=== PATIENT | female | born 1975 | race Caucasian/White ===

== ENCOUNTER 2017-10-06 11:05 | Emergency (ER) | payer OTHER ==
[2017-10-06] MEDS ORDERED: Ketorolac 60 MG/2 ML SDV IM ONE (11:19)
--- NOTE | 2017-10-06 11:24 | EDM.PDOC ---
ED HPI GENERAL MEDICAL PROBLEM - General Chief Complaint: Lower Extremity Injury/Pain Stated Complaint: INJURY LETF KNEE Time Seen by Provider: 10/06/17 11:16 Source of Information: Reports: Patient History Limitations: Reports: No Limitations - History of Present Illness INITIAL COMMENTS - FREE TEXT/NARRATIVE: HISTORY AND PHYSICAL: History of present illness: Patient is a 41-year-old female who presents to the emergency room with complaints of left lateral knee pain. She states she was in [place] picking up her grandson when she was leaning over the console to adjust a seatbelt, was resting on her knee when she felt her leg twist wrong and heard a "pop" to the left knee. She got out of the vehicle to stand up and felt like her leg was going to "give out" and had pain with weight bearing. Currently states it feels "sore" and still has the discomfort when bearing weight on that leg. Denies any numbness or tingling to the lower extremity. Denies any previous injury or surgery to the affected extremity. Review of systems: As per history of present illness and below otherwise all systems reviewed and negative. Past medical history: As per history of present illness and as reviewed below otherwise noncontributory. Surgical history: As per history of present illness and as reviewed below otherwise noncontributory. Social history: No reported history of drug or alcohol abuse. Family history: As per history of present illness and as reviewed below otherwise noncontributory. Physical exam: Gen.: Nontoxic appearing 41-year-old female. Alert and oriented. HEENT: Atraumatic, normocephalic, pupils reactive, negative for conjunctival pallor or scleral icterus, mucous membranes moist, throat clear, neck supple, nontender, trachea midline. Lungs: Clear to auscultation, breath sounds equal bilaterally, chest nontender. Heart: S1S2, regular, negative for clicks, rubs, or JVD. Abdomen: Soft, nondistended, nontender. Negative for masses or hepatosplenomegaly. Negative for costovertebral tenderness. Pelvis: Stable nontender. Genitourinary: Deferred. Rectal: Deferred. Extremities: Atraumatic, moves all extremities per self, negative drawer test, no knee instability noted, negative for cords or calf pain. Neurovascular unremarkable. Strong pedal pulses bilaterally. Skin: No localized areas of redness, warmth, or swelling noted. Intact, warm, dry. No overt lesions or masses. Neuro: Awake, alert, oriented. Cranial nerves II through XII unremarkable. Cerebellum unremarkable. Motor and sensory unremarkable throughout. Exam nonfocal. Patient's blood pressure has not decreased from her initial assessment. Current BP is 232/119 she states she has not had any primary care in "several years". I did suggest that we give her some medication and perform some routine lab work. She declines at this time. She states "I'm only here from a knee". She states she will follow-up with the primary caregiver in the next couple days for evaluation and treatment of her untreated hypertension. There are no acute fractures on the x-ray reading. I informed the patient that I would like her to stay off of her leg over the next 2-3 days. Due to her size a knee immobilizer will not work, we will use an Rodrigue wrap. Crutches will be provided for her with education. If she continues to have pain I instructed her I would like her to follow-up with the orthopedic provider as an MRI may need to be done for inspection of ligamental injury/tear. Prescription for Cataflam will be given for daytime use. A limited amount of tramadol (#10) will be given for nighttime use. Education on both these medications were reviewed with the patient. Patient is agreeable to plan of care. She denies any further questions at this time. Diagnostics: Knee x-ray Therapeutics: Toradol Impression: Knee injury Plan: 1. Use the Cataflam during the day for pain management. Do not take any additional NSAIDs such as Aleve or ibuprofen while taking this medication. Tylenol is safe to take with or alternating with this medication. Tramadol has been prescribed for nighttime use. Do not take this medication while driving or needing to be functioning at work as it may cause drowsiness. 2. Use the Rodrigue wrap to help keep the knee immobilized. Crutches have been provided for you. I would like you to be nonweightbearing for the next 2-3 days. , Ice, elevate the extremity throughout the day as feasible. If you continue to have discomfort please follow-up with orthopedics as we discussed. 3. Please follow-up with your primary care provider to discuss your high blood pressure readings. Today they were 200s over 120s, normal is 120/80. He will likely need medication to control your blood pressure in the future. We discussed risks of continuing to have elevated blood pressure. 4. Return to the ED as needed and as discussed. Definitive disposition and diagnosis as appropriate pending reevaluation and review of above. Onset: Today Duration: Hour(s): Location: Reports: Lower Extremity, Left Improves with: Reports: Rest Worsens with: Reports: Other (Weight bearing) Associated Symptoms: Reports: No Other Symptoms Left Knee Pain Score (Numeric/FACES): 9 - Related Data Allergies Allergy/AdvReac Type Severity Reaction Status Date / Time sulfamethoxazole Allergy Rash Verified 10/09/16 10:44 [From Bactrim] trimethoprim [From Bactrim] Allergy Rash Verified 10/09/16 10:44 Home Meds: Home Meds . [No Known Home Meds] 10/06/17 [History] Past Medical History - Past Health History Medical/Surgical History: Denies Medical/Surgical History HEENT History: Reports: None Cardiovascular History: Reports: Hypertension Respiratory History: Reports: None Gastrointestinal History: Reports: None Genitourinary History: Reports: None [employer] P[employer]ER History: Reports: None Neurological History: Reports: None Psychiatric History: Reports: None Endocrine/Metabolic History: Reports: None Hematologic History: Reports: None Immunologic History: Reports: None Oncologic (Cancer) History: Reports: None Dermatologic History: Reports: None - Infectious Disease History Infectious Disease History: Reports: Chicken Pox - Past Surgical History Female Surgical History: Reports: Tubal Ligation Musculoskeletal Surgical History: Reports: ORIF, Other (See Below) Social & Family History - Family History Family Medical History: Noncontributory - Tobacco Use Smoking Status *Q: Never Smoker Second Hand Smoke Exposure: No - Caffeine Use Caffeine Use: Reports: Coffee, Soda - Alcohol Use Days Per Week of Alcohol Use: 0 - Recreational Drug Use Recreational Drug Use: Yes Drug Use in Last 12 Months: Yes Recreational Drug Type: Reports: Cocaine Recreational Drug Use Frequency: Not Used In Over 6 Months Review of Systems - Review of Systems Review Of Systems: ROS reveals no pertinent complaints other than HPI. Constitutional: Reports: No Symptoms Eyes: Reports: No Symptoms Ears: Reports: No Symptoms Nose: Reports: No Symptoms Mouth/Throat: Reports: No Symptoms Respiratory: Reports: No Symptoms. Denies: Shortness of Breath Cardiovascular: Denies: Chest Pain GI/Abdominal: Denies: Abdominal Pain Skin: Reports: No Symptoms Neurological: Reports: No Symptoms. Denies: Numbness, Paresthesia Psychiatric: Reports: No Symptoms ED EXAM, GENERAL - Physical Exam Exam: See Below Course - Vital Signs Last Recorded V/S: Last Vital Signs Temp 36.3 C 10/06/17 13:52 Pulse 76 10/06/17 13:52 Resp 18 10/06/17 13:52 BP 211/132 H 10/06/17 13:54 Pulse Ox 98 10/06/17 13:52 - Orders/Labs/Meds Orders: Active Orders 24 hr Category Date Time Status DME for Discharge [COMM] Stat Oth 10/06/17 13:49 Ordered Meds: Medications Discontinued Medications Generic Name Dose Route Start Last Admin Trade Name Allyn PRN Reason Stop Dose Admin Ketorolac Tromethamine 60 mg 10/06/17 11:19 10/06/17 11:34 Toradol IM 10/06/17 11:20 60 mg ONETIME ONE Administration Departure - Departure Time of Disposition: 13:48 Disposition: Home, Self-Care 01 Clinical Impression: Elevated blood pressure reading Knee injury Qualifiers: Encounter type: initial encounter Laterality: left Qualified Code(s): S89.92XA - Unspecified injury of left lower leg, initial encounter - Discharge Information Instructions: Knee Pain Referrals: Davin Gurrola DO [Primary Care Provider] - Forms: ED Department Discharge Additional Instructions: My general discharge The following information is given to patients seen in the emergency department who are being discharged to home. This information is to outline your options for follow-up care. We provide all patients seen in our emergency department with a follow-up referral. The need for follow-up, as well as the timing and circumstances, are variable depending upon the specifics of your emergency department visit. If you don't have a primary care physician on staff, we will provide you with a referral. We always advise you to contact your personal physician following an emergency department visit to inform them of the circumstance of the visit and for follow-up with them and/or the need for any referrals to a consulting specialist. The emergency department will also refer you to a specialist when appropriate. This referral assures that you have the opportunity for follow-up care with a specialist. All of these measure are taken in an effort to provide you with optimal care, which includes your follow-up. Under all circumstances we always encourage you to contact your private physician who remains a resource for coordinating your care. When calling for follow-up care, please make the office aware that this follow-up is from your recent emergency room visit. If for any reason you are refused follow-up, please contact the [facility] Emergency Department at and asked to speak to the emergency department charge nurse [facility] [address], [address] [place] [address] 1. Use the Cataflam during the day for pain management. Do not take any additional NSAIDs such as Aleve or ibuprofen while taking this medication. Tylenol is safe to take with or alternating with this medication. Tramadol has been prescribed for nighttime use. Do not take this medication while driving or needing to be functioning at work as it may cause drowsiness. 2. Use the Rodrigue wrap to help keep the knee immobilized. Crutches have been provided for you. I would like you to be nonweightbearing for the next 2-3 days. , Ice, elevate the extremity throughout the day as feasible. If you continue to have discomfort please follow-up with orthopedics as we discussed. 3. Please follow-up with your primary care provider to discuss your high blood pressure readings. Today they were 200s over 120s, normal is 120/80. He will likely need medication to control your blood pressure in the future. We discussed risks of continuing to have elevated blood pressure. 4. Return to the ED as needed and as discussed. - My Orders Last 24 Hours: My Active Orders 10/06/17 13:49 DME for Discharge [COMM] Stat - Assessment/Plan Last 24 Hours: My Active Orders 10/06/17 13:49 DME for Discharge [COMM] Stat
--- NOTE | 2017-10-06 12:29 | CR ---
EXAMINATION: Left knee HISTORY: Pain COMPARISON: None TECHNIQUE: 3 views FINDINGS/IMPRESSION: There is no acute osseous abnormality, dislocation, or fracture. Joint spaces an d bone mineralization appears normal. No soft tissue swelling or joint effusion.
[2017-10-06 13:58] VITALS: BP 211/132
== END 2017-10-06 14:24 | disposition home or self-care (01) ==
LOC: MW.ED 11:05
DX: S89.92XA Unspecified injury of left lower leg, initial encounter (principal); I10 Essential (primary) hypertension; Z88.2 Allergy status to sulfonamides; Z88.1 Allergy status to other antibiotic agents; X50.1XXA Overexertion from prolonged static or awkward postures, initial encounter
CPT/HCPCS: 73562; 96372; 99283; J1885; 99284

== ENCOUNTER 2018-12-01 21:18 | Inpatient (IN) | payer OTHER ==
--- NOTE | 2018-12-01 22:25 | EDM.PDOC ---
ED HPI GENERAL MEDICAL PROBLEM - General Chief Complaint: General Stated Complaint: fever Time Seen by Provider: 12/01/18 22:25 Source of Information: Reports: Patient - History of Present Illness INITIAL COMMENTS - FREE TEXT/NARRATIVE: HISTORY AND PHYSICAL: History of present illness: [Patient presents with 1-2 weeks of cough fever and significant cough shortness breath over the last couple of days Eyes any chest pain headache dizziness palpitation no bowel or urine symptoms ] Review of systems: As per history of present illness and below otherwise all systems reviewed and negative. Past medical history: As per history of present illness and as reviewed below otherwise noncontributory. Surgical history: As per history of present illness and as reviewed below otherwise noncontributory. Social history: No reported history of drug or alcohol abuse. Family history: As per history of present illness and as reviewed below otherwise noncontributory. Physical exam: HEENT: Atraumatic, normocephalic, pupils reactive, negative for conjunctival pallor or scleral icterus, mucous membranes moist, throat clear, neck supple, nontender, trachea midline. Lungs: Clear to auscultation, breath sounds equal bilaterally, chest nontender. Post breathing treatment Heart: S1S2, regular, negative for clicks, rubs, or JVD. Abdomen: Soft, nondistended, nontender. Negative for masses or hepatosplenomegaly. Negative for costovertebral tenderness. Pelvis: Stable nontender. Genitourinary: Deferred. Rectal: Deferred. Extremities: Atraumatic, negative for cords or calf pain. Neurovascular unremarkable. Neuro: Awake, alert, oriented. Cranial nerves II through XII unremarkable. Cerebellum unremarkable. Motor and sensory unremarkable throughout. Exam nonfocal. Diagnostics: []Chest 1 view Influenza TBC CMP BN peptide lactate blood cultures 2 Chest 1 view Therapeutics: will saline Levaquin 7050 mg IV Impression: pneumonia deffinitive disposition and diagnosis as appropriate pending reevaluation and review of above. Generalized Pain Score (Numeric/FACES): 7 - Related Data Allergies Allergy/AdvReac Type Severity Reaction Status Date / Time sulfamethoxazole Allergy Rash Verified 12/01/18 22:10 [From Bactrim] trimethoprim [From Bactrim] Allergy Rash Verified 12/01/18 22:10 Home Meds: Home Meds Lisinopril 10 mg PO DAILY 12/01/18 [History] Past Medical History - Past Health History Medical/Surgical History: Denies Medical/Surgical History HEENT History: Reports: None Cardiovascular History: Reports: Hypertension Respiratory History: Reports: None Gastrointestinal History: Reports: None Genitourinary History: Reports: None [employer]NER History: Reports: Neurological History: Reports: None Psychiatric History: Reports: None Endocrine/Metabolic History: Reports: None Hematologic History: Reports: None Immunologic History: Reports: None Oncologic (Cancer) History: Reports: None Dermatologic History: Reports: None - Infectious Disease History Infectious Disease History: Reports: Chicken Pox - Past Surgical History Female Surgical History: Reports: Tubal Ligation Musculoskeletal Surgical History: Reports: ORIF, Other (See Below) Social & Family History - Family History Family Medical History: Noncontributory - Tobacco Use Smoking Status *Q: Former Smoker Used Tobacco, but Quit: Yes Month/Year Tobacco Last Used: 2012 - Caffeine Use Caffeine Use: Reports: Coffee, Soda - Recreational Drug Use Recreational Drug Use: No ED ROS GENERAL - Review of Systems Review Of Systems: See Below ED EXAM, GENERAL - Physical Exam Exam: See Below Course - Vital Signs Last Recorded V/S: Last Vital Signs Temp 98.9 F 12/01/18 22:06 Pulse 116 H 12/01/18 22:06 Resp 24 H 12/01/18 22:06 BP 193/120 H 12/01/18 22:06 Pulse Ox 94 L 12/01/18 22:06 - Orders/Labs/Meds Orders: Active Orders 24 hr Category Date Time Status RT Aerosol Therapy [RC] ASDIRECTED Care 12/01/18 23:16 Active Chest 1V Frontal [CR] Stat Exams 12/01/18 22:24 Taken CULTURE BLOOD [BC] Stat Lab 12/01/18 23:30 Received CULTURE BLOOD [BC] Stat Lab 12/01/18 23:40 Received UA RFX ERIKA AND CULT IF INDIC [URIN] Stat Lab 12/01/18 23:16 Ordered Levofloxacin/Dextrose 5%-Water [Levaquin in D5W 750 MG/ Med 12/02/18 00:13 Active 150 ML] 750 mg Premix Bag 1 bag IV ONETIME Sodium Chloride 0.9% [Normal Saline] 1,000 ml Med 12/01/18 23:30 Active IV STAT Sodium Chloride 0.9% [Normal Saline] 1,000 ml Med 12/02/18 00:15 Active IV STAT Blood Culture x2 Reflex Set [OM.PC] Stat Oth 12/01/18 23:16 Ordered Medication Orders Sodium Chloride (Normal Saline) 1,000 mls @ 125 mls/hr IV STAT JULIO Last Admin: 12/02/18 00:22 Dose: 125 mls/hr Levofloxacin/Dextrose 750 mg/ (Premix) 150 mls @ 100 mls/hr IV ONETIME ONE Stop: 12/02/18 01:42 Sodium Chloride (Normal Saline) 1,000 mls @ 125 mls/hr IV STAT JULIO Labs: Laboratory Tests 12/01/18 12/01/18 12/01/18 Range/Units 23:30 23:30 23:30 WBC 5.48 (4.0-11.0) K/uL RBC 5.79 (4.30-5.90) M/uL Hgb 14.8 (12.0-16.0) g/dL Hct 44.6 (36.0-46.0) % MCV 77.0 L (80.0-98.0) fL MCH 25.6 L (27.0-32.0) pg MCHC 33.2 (31.0-37.0) g/dL RDW Std Deviation 39.6 (28.0-62.0) fl RDW Coeff of Nidia 14 (11.0-15.0) % Plt Count 156 (150-400) K/uL MPV 10.50 (7.40-12.00) fL Add Manual Diff YES Neutrophils % (Manual) 40 L (48.0-80.0) % Band Neutrophils % 9 % Lymphocytes % (Manual) 40 (16.0-40.0) % Monocytes % (Manual) 11 (0.0-15.0) % Nucleated RBC % 0.0 /100WBC Absolute Seg Neuts 2.2 (1.4-5.7) Band Neutrophils # 0.5 Lymphocytes # (Manual) 2.2 (0.6-2.4) Monocytes # (Manual) 0.6 (0.0-0.8) Nucleated RBCs # 0 K/uL Lactate 1.0 (0.20-2.00) mmol/L Sodium 139 (136-145) mmol/L Potassium 3.6 (3.5-5.1) mmol/L Chloride 102 (98-107) mmol/L Carbon Dioxide 26.6 (21.0-32.0) mmol/L BUN 13 (7.0-18.0) mg/dL Creatinine 1.3 H (0.6-1.0) mg/dL Est Cr Clr Drug Dosing 50.21 mL/min Estimated GFR (MDRD) 44.7 ml/min Glucose 99 (74-106) mg/dL Calcium 8.9 (8.5-10.1) mg/dL Total Bilirubin 0.6 (0.2-1.0) mg/dL AST 45 H (15-37) IU/L ALT 80 H (14-63) IU/L Alkaline Phosphatase 66 (46-116) U/L Troponin I < 0.050 (0.000-0.056) ng/mL B-Natriuretic Peptide (<100) PG/ML Total Protein 7.6 (6.4-8.2) g/dL Albumin 3.3 L (3.4-5.0) g/dL Globulin 4.3 H (2.6-4.0) g/dL Albumin/Globulin Ratio 0.8 L (0.9-1.6) 12/01/18 Range/Units 23:30 WBC (4.0-11.0) K/uL RBC (4.30-5.90) M/uL Hgb (12.0-16.0) g/dL Hct (36.0-46.0) % MCV (80.0-98.0) fL MCH (27.0-32.0) pg MCHC (31.0-37.0) g/dL RDW Std Deviation (28.0-62.0) fl RDW Coeff of Nidia (11.0-15.0) % Plt Count (150-400) K/uL MPV (7.40-12.00) fL Add Manual Diff Neutrophils % (Manual) (48.0-80.0) % Band Neutrophils % % Lymphocytes % (Manual) (16.0-40.0) % Monocytes % (Manual) (0.0-15.0) % Nucleated RBC % /100WBC Absolute Seg Neuts (1.4-5.7) Band Neutrophils # Lymphocytes # (Manual) (0.6-2.4) Monocytes # (Manual) (0.0-0.8) Nucleated RBCs # K/uL Lactate (0.20-2.00) mmol/L Sodium (136-145) mmol/L Potassium (3.5-5.1) mmol/L Chloride (98-107) mmol/L Carbon Dioxide (21.0-32.0) mmol/L BUN (7.0-18.0) mg/dL Creatinine (0.6-1.0) mg/dL Est Cr Clr Drug Dosing mL/min Estimated GFR (MDRD) ml/min Glucose (74-106) mg/dL Calcium (8.5-10.1) mg/dL Total Bilirubin (0.2-1.0) mg/dL AST (15-37) IU/L ALT (14-63) IU/L Alkaline Phosphatase (46-116) U/L Troponin I (0.000-0.056) ng/mL B-Natriuretic Peptide 18 (<100) PG/ML Total Protein (6.4-8.2) g/dL Albumin (3.4-5.0) g/dL Globulin (2.6-4.0) g/dL Albumin/Globulin Ratio (0.9-1.6) Meds: Medications Generic Name Dose Route Start Last Admin Trade Name Freq PRN Reason Stop Dose Admin Sodium Chloride 1,000 mls @ 125 mls/hr 12/01/18 23:30 12/02/18 00:22 Normal Saline IV 125 mls/hr STAT JULIO Administration Levofloxacin/Dextrose 750 mg/ 150 mls @ 100 mls/hr 12/02/18 00:13 Premix IV 12/02/18 01:42 ONETIME ONE Sodium Chloride 1,000 mls @ 125 mls/hr 12/02/18 00:15 Normal Saline IV STAT JULIO Discontinued Medications Generic Name Dose Route Start Last Admin Trade Name Freq PRN Reason Stop Dose Admin Albuterol/Ipratropium 3 ml 12/01/18 23:16 12/02/18 00:22 Duoneb 3.0-0.5 Mg/3 Ml NEB 12/01/18 23:17 3 ml ONETIME ONE Administration Methylprednisolone Sodium Succinate 125 mg 12/01/18 23:16 12/02/18 00:22 Solu-Medrol IVPUSH 12/01/18 23:17 125 mg ONETIME ONE Administration Departure - Departure Time of Disposition: 00:45 Disposition: Admitted As Inpatient 65 Condition: Fair Clinical Impression: Pneumonia - Discharge Information Referrals: PCP,None [Primary Care Provider] - Forms: ED Department Discharge - My Orders Last 24 Hours: My Active Orders 12/01/18 22:24 Chest 1V Frontal [CR] Stat 12/01/18 23:16 RT Aerosol Therapy [RC] ASDIRECTED UA RFX ERIKA AND CULT IF INDIC [URIN] Stat Blood Culture x2 Reflex Set [OM.PC] Stat 12/01/18 23:30 CULTURE BLOOD [BC] Stat Sodium Chloride 0.9% [Normal Saline] 1,000 ml IV STAT 12/01/18 23:40 CULTURE BLOOD [BC] Stat 12/02/18 00:13 Levofloxacin/Dextrose 5%-Water [Levaquin in D5W 750 MG/150 ML] 750 mg Premix Bag 1 bag IV ONETIME 12/02/18 00:15 Sodium Chloride 0.9% [Normal Saline] 1,000 ml IV STAT - Assessment/Plan Last 24 Hours: My Active Orders 12/01/18 22:24 Chest 1V Frontal [CR] Stat 12/01/18 23:16 RT Aerosol Therapy [RC] ASDIRECTED UA RFX ERIKA AND CULT IF INDIC [URIN] Stat Blood Culture x2 Reflex Set [OM.PC] Stat 12/01/18 23:30 CULTURE BLOOD [BC] Stat Sodium Chloride 0.9% [Normal Saline] 1,000 ml IV STAT 12/01/18 23:40 CULTURE BLOOD [BC] Stat 12/02/18 00:13 Levofloxacin/Dextrose 5%-Water [Levaquin in D5W 750 MG/150 ML] 750 mg Premix Bag 1 bag IV ONETIME 12/02/18 00:15 Sodium Chloride 0.9% [Normal Saline] 1,000 ml IV STAT
[2018-12-01] MEDS ORDERED: Albuterol/Ipratropium 3.0-0.5 MG/3 ML Neb Soln NEB ONE (23:16)
[2018-12-01] MEDS ORDERED: methylPREDNISolone Sodium Succinate 125 MG/2 ML SDV IVPUSH ONE (23:16)
[2018-12-02] MEDS ORDERED: Levofloxacin/Dextrose 5%-Water 750 MG in Premix Bag 1 BAG IV ONE (00:13)
[2018-12-02 00:18] LABS: CHLORIDE,CL 102 mmol/L (98-107); SODIUM,NA 139 mmol/L (136-145)
[2018-12-02] MEDS: Sodium Chloride 0.9% 1,000 ML IV SCH ×4 (00:22→20:13)
[2018-12-02] MEDS: Benzonatate 100 MG Cap PO PRN (08:36)
[2018-12-02] MEDS: Albuterol/Ipratropium 3.0-0.5 MG/3 ML Neb Soln NEB PRN ×2 (08:36→15:59)
[2018-12-02] MEDS ORDERED: Lisinopril 10 MG Tab PO SCH (09:00)
--- NOTE | 2018-12-02 10:03 | PCM.HP ---
H&P History of Present Illness - General Date of Service: 12/02/18 Admit Problem/Dx: Admission Diagnosis/Problem Admission Diagnosis/Problem Pneumonia Source of Information: Patient History Limitations: Reports: No Limitations - History of Present Illness Initial Comments - Free Text/Narative: This is a 42F with a history of HTN, obesity that presented to the ER with a chief complaint of cough, nausea, and cold symptoms that began 3 days prior to presentation which was progressively worsening. Patient was found in the ER on CXR to have a R lung pneumonia and was admitted for further management. She was placed on IV levaquin, states that she has a persistent cough, feels a bit better. Denies chest pain, shortness of breath. Main concern is a dry, persistent cough that is causing her discomfort. Generalized Pain Score (Numeric/FACES): 7 - Related Data Allergies/Adverse Reactions: Allergies Allergy/AdvReac Type Severity Reaction Status Date / Time sulfamethoxazole Allergy Rash Verified 12/01/18 22:10 [From Bactrim] trimethoprim [From Bactrim] Allergy Rash Verified 12/01/18 22:10 Home Medications: Home Meds Lisinopril 10 mg PO DAILY 12/01/18 [History] Past Medical History - Past Health History Medical/Surgical History: Denies Medical/Surgical History HEENT History: Reports: None Cardiovascular History: Reports: Hypertension Respiratory History: Reports: None Gastrointestinal History: Reports: None Genitourinary History: Reports: None 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 Social & Family History - Family History Family Medical History: Noncontributory - Tobacco Use Smoking Status *Q: Never Smoker Used Tobacco, but Quit: Yes Month/Year Tobacco Last Used: 2012 Second Hand Smoke Exposure: Yes - Caffeine Use Caffeine Use: Reports: Coffee - Recreational Drug Use Recreational Drug Use: No H&P Review of Systems - Review of Systems: Review Of Systems: See Below General: Reports: No Symptoms HEENT: Reports: No Symptoms Pulmonary: Reports: No Symptoms Cardiovascular: Reports: No Symptoms Gastrointestinal: Reports: No Symptoms Genitourinary: Reports: No Symptoms Musculoskeletal: Reports: No Symptoms Skin: Reports: No Symptoms Psychiatric: Reports: No Symptoms Neurological: Reports: No Symptoms Hematologic/Lymphatic: Reports: No Symptoms Immunologic: Reports: No Symptoms Exam - Exam Exam: See Below - Vital Signs Vital Signs: Last Vital Signs Temp 36.3 C 12/02/18 08:00 Pulse 101 H 12/02/18 08:00 Resp 19 12/02/18 08:00 BP 184/111 H 12/02/18 08:36 Pulse Ox 92 L 12/02/18 08:00 Weight: 140 kg - Exam General: Alert, Oriented, 4 HEENT: PERRLA, Hearing Intact, Mucosa Moist & [place], Nares Patent, Normal Nasal Septum, Posterior Pharynx Clear, Conjunctiva Clear, EOMI, EACs Clear, TMs Clear Neck: Supple, Trachea Midline, 2 Lungs: Normal Respiratory Effort, Wheezing. No: Crackles Cardiovascular: Regular Rate, Regular Rhythm GI/Abdominal Exam: Normal Bowel Sounds, Soft, Non-Tender, No Organomegaly, No Distention, No Abnormal Bruit, No Mass, Pelvis Stable Back Exam: Normal Inspection, Full Range of Motion, NT Extremities: Normal Inspection, Normal Range of Motion, Non-Tender, Normal Capillary Refill, Pedal Edema (trace) Peripheral Pulses: 2+: Dorsalis Pedis (L), Dorsalis Pedis (R) Skin: Warm, Dry, Intact Neurological: Cranial Nerves Intact, Reflexes Equal Bilateral Neuro Extensive - Mental Status: Alert, Oriented x3, Normal Mood/Affect, Normal Cognition Neuro Extensive - Motor, Sensory, Reflexes: CN II-XII Intact, Normal Gait, Normal Reflexes Psychiatric: Alert, Normal Affect, Normal Mood - Patient Data Lab Results Last 24 hrs: Laboratory Results - last 24 hr 12/01/18 12/01/18 12/01/18 Range/Units 23:30 23:30 23:30 WBC 5.48 (4.0-11.0) K/uL RBC 5.79 (4.30-5.90) M/uL Hgb 14.8 (12.0-16.0) g/dL Hct 44.6 (36.0-46.0) % MCV 77.0 L (80.0-98.0) fL MCH 25.6 L (27.0-32.0) pg MCHC 33.2 (31.0-37.0) g/dL RDW Std Deviation 39.6 (28.0-62.0) fl RDW Coeff of Nidia 14 (11.0-15.0) % Plt Count 156 (150-400) K/uL MPV 10.50 (7.40-12.00) fL Add Manual Diff YES Neutrophils % (Manual) 40 L (48.0-80.0) % Band Neutrophils % 9 % Lymphocytes % (Manual) 40 (16.0-40.0) % Monocytes % (Manual) 11 (0.0-15.0) % Nucleated RBC % 0.0 /100WBC Absolute Seg Neuts 2.2 (1.4-5.7) Band Neutrophils # 0.5 Lymphocytes # (Manual) 2.2 (0.6-2.4) Monocytes # (Manual) 0.6 (0.0-0.8) Nucleated RBCs # 0 K/uL Lactate 1.0 (0.20-2.00) mmol/L Sodium 139 (136-145) mmol/L Potassium 3.6 (3.5-5.1) mmol/L Chloride 102 (98-107) mmol/L Carbon Dioxide 26.6 (21.0-32.0) mmol/L BUN 13 (7.0-18.0) mg/dL Creatinine 1.3 H (0.6-1.0) mg/dL Est Cr Clr Drug Dosing 50.21 mL/min Estimated GFR (MDRD) 44.7 ml/min Glucose 99 (74-106) mg/dL Calcium 8.9 (8.5-10.1) mg/dL Total Bilirubin 0.6 (0.2-1.0) mg/dL AST 45 H (15-37) IU/L ALT 80 H (14-63) IU/L Alkaline Phosphatase 66 (46-116) U/L Troponin I < 0.050 (0.000-0.056) ng/mL B-Natriuretic Peptide (<100) PG/ML Total Protein 7.6 (6.4-8.2) g/dL Albumin 3.3 L (3.4-5.0) g/dL Globulin 4.3 H (2.6-4.0) g/dL Albumin/Globulin Ratio 0.8 L (0.9-1.6) Urine Color Urine Appearance Urine pH (5.0-8.0) Ur Specific [place] (1.001-1.035) Urine Protein (NEGATIVE) mg/dL Urine Glucose (UA) (NEGATIVE) mg/dL Urine Ketones (NEGATIVE) mg/dL Urine Occult Blood (NEGATIVE) Urine Nitrite (NEGATIVE) Urine Bilirubin (NEGATIVE) Urine Urobilinogen (<2.0) EU/dL Ur Leukocyte Esterase (NEGATIVE) 12/01/18 12/02/18 12/02/18 Range/Units 23:30 02:25 08:32 WBC (4.0-11.0) K/uL RBC (4.30-5.90) M/uL Hgb (12.0-16.0) g/dL Hct (36.0-46.0) % MCV (80.0-98.0) fL MCH (27.0-32.0) pg MCHC (31.0-37.0) g/dL RDW Std Deviation (28.0-62.0) fl RDW Coeff of Nidia (11.0-15.0) % Plt Count (150-400) K/uL MPV (7.40-12.00) fL Add Manual Diff Neutrophils % (Manual) (48.0-80.0) % Band Neutrophils % % Lymphocytes % (Manual) (16.0-40.0) % Monocytes % (Manual) (0.0-15.0) % Nucleated RBC % /100WBC Absolute Seg Neuts (1.4-5.7) Band Neutrophils # Lymphocytes # (Manual) (0.6-2.4) Monocytes # (Manual) (0.0-0.8) Nucleated RBCs # K/uL Lactate (0.20-2.00) mmol/L Sodium 138 (136-145) mmol/L Potassium 3.6 (3.5-5.1) mmol/L Chloride 103 (98-107) mmol/L Carbon Dioxide 26.0 (21.0-32.0) mmol/L BUN 12 (7.0-18.0) mg/dL Creatinine 1.2 H (0.6-1.0) mg/dL Est Cr Clr Drug Dosing 54.39 mL/min Estimated GFR (MDRD) 49.0 ml/min Glucose 207 H (74-106) mg/dL Calcium 8.8 (8.5-10.1) mg/dL Total Bilirubin (0.2-1.0) mg/dL AST (15-37) IU/L ALT (14-63) IU/L Alkaline Phosphatase (46-116) U/L Troponin I (0.000-0.056) ng/mL B-Natriuretic Peptide 18 (<100) PG/ML Total Protein (6.4-8.2) g/dL Albumin (3.4-5.0) g/dL Globulin (2.6-4.0) g/dL Albumin/Globulin Ratio (0.9-1.6) Urine Color YELLOW Urine Appearance CLEAR Urine pH 6.0 (5.0-8.0) Ur Specific [place] 1.010 (1.001-1.035) Urine Protein NEGATIVE (NEGATIVE) mg/dL Urine Glucose (UA) NEGATIVE (NEGATIVE) mg/dL Urine Ketones TRACE H (NEGATIVE) mg/dL Urine Occult Blood NEGATIVE (NEGATIVE) Urine Nitrite NEGATIVE (NEGATIVE) Urine Bilirubin NEGATIVE (NEGATIVE) Urine Urobilinogen 0.2 (<2.0) EU/dL Ur Leukocyte Esterase NEGATIVE (NEGATIVE) Result Diagrams: 12/01/18 23:30 12/02/18 08:32 Pete Results Last 24 hrs: Microbiology 12/01/18 22:09 Influenza Type A Antigen Screen - Final Nasopharyngeal Swab NEGATIVE INFLUENZA A VIRUS AG Influenza Type B Antigen Screen - Final NEGATIVE INFLUENZA B VIRUS AG Problem List Initiated/Reviewed/Updated: Yes Orders Last 24hrs: Active Orders 24 hr Category Date Time Status Admission Status [Patient Status] [ADT] Stat ADT 12/02/18 00:46 Active RT Aerosol Therapy [RC] ASDIRECTED Care 12/01/18 23:16 Active RT Aerosol Therapy [RC] ASDIRECTED Care 12/02/18 08:22 Active Regular Diet [DIET] Diet 12/02/18 Breakfast Active Chest 1V Frontal [CR] Stat Exams 12/01/18 22:24 Taken CULTURE BLOOD [BC] Stat Lab 12/01/18 23:30 Received CULTURE BLOOD [BC] Stat Lab 12/01/18 23:40 Received CULTURE SPUTUM + SMEAR [RM] Routine Lab 12/02/18 03:16 Ordered Albuterol/Ipratropium [DuoNeb 3.0-0.5 MG/3 ML] Med 12/02/18 08:22 Active 3 ml NEB Q4HRRT PRN Benzonatate [Tessalon Perles] Med 12/02/18 08:22 Active 100 mg PO TID PRN FLU Vacc [id number] 36MOS UP/PF [Fluzone Quad [id number] Med 12/02/18 10:00 Once Syringe] 60 mcg IM .ONCE ONE Levofloxacin/Dextrose 5%-Water [Levaquin in D5W 750 MG/ Med 12/03/18 01:30 Active 150 ML] 750 mg Premix Bag 1 bag IV Q24H Lisinopril [Prinivil] Med 12/02/18 09:00 Active 10 mg PO DAILY Sodium Chloride 0.9% [Normal Saline] 1,000 ml Med 12/01/18 23:30 Active IV STAT Sodium Chloride 0.9% [Normal Saline] 1,000 ml Med 12/02/18 00:15 Active IV STAT Blood Culture x2 Reflex Set [OM.PC] Stat Oth 12/01/18 23:16 Ordered Medication Orders Albuterol/Ipratropium (Duoneb 3.0-0.5 Mg/3 Ml) 3 ml NEB Q4HRRT PRN PRN Reason: Wheezing Last Admin: 12/02/18 08:36 Dose: 3 ml Benzonatate (Tessalon Perles) 100 mg PO TID PRN PRN Reason: Cough Last Admin: 12/02/18 08:36 Dose: 100 mg Sodium Chloride (Normal Saline) 1,000 mls @ 125 mls/hr IV STAT [facility] Last Admin: 12/02/18 00:22 Dose: 125 mls/hr Sodium Chloride (Normal Saline) 1,000 mls @ 125 mls/hr IV STAT [facility] Last Admin: 12/02/18 03:00 Dose: 125 mls/hr Levofloxacin/Dextrose 750 mg/ (Premix) 150 mls @ 100 mls/hr IV Q24H COUNTS INCLUDE 234 BEDS AT THE [facility] Influenza Virus Vaccine (Fluzone Quad 2947-1160 Syringe) 60 mcg IM .ONCE ONE Stop: 12/02/18 10:01 Lisinopril (Prinivil) 10 mg PO DAILY JULIO Last Admin: 12/02/18 08:36 Dose: 10 mg Assessment/Plan Comment:: Assessment: #1. Community acquired pneumonia #2. HTN #3. Obesity #4. CKD #5. Hyperglycemia Plan: #1. Admit to the floor as an inpatient. Vitals per floor routine. Lovenox for DVT Prophylaxis #2. IV Levaquin 750mg q24h for pneumonia #3. Tessalon perles for cough #4. Obtain hgba1c given hyperglycemia, initiate low dose insulin sliding scale #5. Admin flu shot #6. DuoNeb q4h PRN wheezing. #7. Trace pedal edema noted on physical exam. Given cardiac risk factors, will schedule an echocardiogram as an outpatient. She is to f/u with a PCP in regard to this. She is not a tobacco user.
--- NOTE | 2018-12-02 11:34 | CR ---
EXAM DATE: 12/02/18 PATIENT'S AGE: 42 Patient: AMRJORIE NAVARRETE Facility: [place], [place] Site . Site : 1975 Study: XRay Chest [id number] 10:51:24 PM Ordering Physician: Doctor Boswell Final Report: INDICATION: Cough, high blood pressure TECHNIQUE: Chest 1 view. COMPARISON: 11/01/2013 FINDINGS: Cardiovascular and mediastinum: Heart size and vasculature are normal in caliber and appearance. Mediastinum is within normal limits. Lungs and pleural space: Patchy airspace opacities right upper and right lower lobes. No sign of pleural effusion. No pneumothorax. Bones and soft tissues: No significant findings. IMPRESSION: Patchy airspace opacities right upper and right lower lobes consistent with pneumonia. Dictated by Jason Luciano MD @ 12/01/2018 11:01:17 PM Dictated by: Jason Luciano MD @ 12/01/2018 23:01:22 (Electronic Signature) Report Signed by Proxy. ANISA
[2018-12-02] MEDS: Insulin Aspart 100 Units/ML 3 ML Pen SUBCUT SCH ×2 (11:53→17:53)
[2018-12-02] MEDS ORDERED: amLODIPine 5 MG Tab PO ONE (18:22)
[2018-12-03] MEDS ORDERED: hydrALAZINE 25 MG Tab PO PRN (00:36)
[2018-12-03] MEDS: Albuterol/Ipratropium 3.0-0.5 MG/3 ML Neb Soln NEB PRN (01:06)
[2018-12-03] MEDS: Benzonatate 100 MG Cap PO PRN ×2 (01:06→12:41)
[2018-12-03] MEDS ORDERED: Levofloxacin/Dextrose 5%-Water 750 MG in Premix Bag 1 BAG IV SCH (01:30)
[2018-12-03 06:24] LABS: HEMOGLOBIN A1C 6.1 % (4.5-6.2)
[2018-12-03] MEDS: Insulin Aspart 100 Units/ML 3 ML Pen SUBCUT SCH ×2 (06:35→12:42)
[2018-12-03] MEDS: Sodium Chloride 0.9% 1,000 ML IV SCH (08:21)
[2018-12-03] MEDS ORDERED: Lisinopril 10 MG Tab PO SCH (09:00)
--- NOTE | 2018-12-03 09:46 | PCM.DCSUM1 ---
<Noah West - Last Filed: 12/03/18 09:44> Discharge Summary - Hospital Course Free Text/Narrative:: Admission date: 12/01/2018 Discharge date: 12/03/2018 Admission diagnosis: #1. Community acquired pneumonia #2. HTN #3. Obesity #4. CKD #5. Hyperglycemia Discharge diagnosis: #1. Community acquired pneumonia #2. HTN #3. Obesity #4. CKD #5. Hyperglycemia - Prediabetes Hospital course: 42F that presented w/ cough, cold symptoms for 3 days prior to presentation found to have a R Lung pneumonia. She was admitted for further management; placed on IV Levaquin. Patient responded well to the antibiotic and felt comfortable going home the day of discharge. She was complaining of a persistent cough for which she was given tessalon perles and phenergan w/ codeine. She is to f/u with myself in clinic next week where her HTN, prediabetes, f/u on pneumonia will be addressed. Lisinopril has been increased from 10 to 20mg PO daily. She agrees to the plan. - Discharge Data Discharge Date: 12/03/18 Discharge Disposition: Home, Self-Care 01 Condition: Stable - Patient Instructions Diet: Usual Diet as Tolerated Activity: As Tolerated Driving: May Drive Today Showering/Bathing: May Shower Notify Provider of: Fever, Nausea and/or Vomiting - Discharge Plan Prescriptions/Med Rec: Benzonatate [Tessalon Perle] 100 mg PO TID PRN 5 Days #15 capsule PRN Reason: Cough Codeine/Promethazine [Phenergan with Codeine] 5 ml PO Q8H #1 bottle Levofloxacin 750 mg PO Q24H 5 Days #5 tablet Lisinopril [Prinivil] 20 mg PO DAILY 14 Days #14 tablet Home Medications: Home Meds Benzonatate [Tessalon Perle] 100 mg PO TID PRN 5 Days #15 capsule 12/03/18 [Rx] Codeine/Promethazine [Phenergan with Codeine] 5 ml PO Q8H #1 bottle 12/03/18 [Rx ] Levofloxacin 750 mg PO Q24H 5 Days #5 tablet 12/03/18 [Rx] Lisinopril [Prinivil] 20 mg PO DAILY 14 Days #14 tablet 12/03/18 [Rx] Patient Handouts: Lisinopril tablets, Levofloxacin tablets, Codeine; Promethazine oral syrup, Benzonatate capsules, Community-Acquired Pneumonia, Adult, [id number] Referrals: [facility] [Outside] Noah West MD [Resident] - 12/09/18 2:00 pm - Discharge Summary/Plan Comment DC Time >30 min.: No - Patient Data Vitals - Most Recent: Last Vital Signs Temp 36.1 C 12/03/18 07:15 Pulse 79 12/03/18 07:15 Resp 18 12/03/18 07:15 BP 180/92 H 12/03/18 08:20 Pulse Ox 92 L 12/03/18 07:15 Weight - Most Recent: 140 kg I&O - Last 24 hours: Intake & Output 12/02/18 12/03/18 12/03/18 22:59 06:59 14:59 Intake Total 1900 Output Total 950 Balance 950 Lab Results - Last 24 hrs: Laboratory Results - last 24 hr 12/02/18 12/02/18 12/03/18 Range/Units 11:46 16:42 05:55 Sodium (136-145) mmol/L Potassium (3.5-5.1) mmol/L Chloride (98-107) mmol/L Carbon Dioxide (21.0-32.0) mmol/L BUN (7.0-18.0) mg/dL Creatinine (0.6-1.0) mg/dL Est Cr Clr Drug Dosing mL/min Estimated GFR (MDRD) ml/min Glucose (74-106) mg/dL POC Glucose 132 H 189 H (60-110) mg/dL Hemoglobin A1c 6.1 (4.5-6.2) % Calcium (8.5-10.1) mg/dL 12/03/18 Range/Units 05:55 Sodium 142 (136-145) mmol/L Potassium 4.5 (3.5-5.1) mmol/L Chloride 106 (98-107) mmol/L Carbon Dioxide 27.9 (21.0-32.0) mmol/L BUN 19 H (7.0-18.0) mg/dL Creatinine 1.1 H (0.6-1.0) mg/dL Est Cr Clr Drug Dosing 59.34 mL/min Estimated GFR (MDRD) 54.2 ml/min Glucose 124 H (74-106) mg/dL POC Glucose (60-110) mg/dL Hemoglobin A1c (4.5-6.2) % Calcium 9.1 (8.5-10.1) mg/dL ERIKA Results - Last 24 hrs: Microbiology 12/01/18 23:40 Aerobic Blood Culture - Preliminary Blood - Venous - Lab Draw NO GROWTH AFTER 1 DAY Anaerobic Blood Culture - Preliminary NO GROWTH AFTER 1 DAY 12/01/18 23:30 Aerobic Blood Culture - Preliminary Blood - Venous NO GROWTH AFTER 1 DAY Anaerobic Blood Culture - Preliminary NO GROWTH AFTER 1 DAY Med Orders - Current: Current Medications Albuterol/Ipratropium (Duoneb 3.0-0.5 Mg/3 Ml) 3 ml NEB Q4HRRT PRN PRN Reason: Wheezing Last Admin: 12/03/18 01:06 Dose: 3 ml Benzonatate (Tessalon Perles) 100 mg PO TID PRN PRN Reason: Cough Last Admin: 12/03/18 01:06 Dose: 100 mg Hydralazine HCl (Apresoline) 25 mg PO Q8H PRN PRN Reason: SBP greater than 180 Last Admin: 12/03/18 01:06 Dose: 25 mg Sodium Chloride (Normal Saline) 1,000 mls @ 125 mls/hr IV STAT [facility] Last Admin: 12/03/18 08:21 Dose: 125 mls/hr Sodium Chloride (Normal Saline) 1,000 mls @ 125 mls/hr IV STAT [facility] Last Admin: 12/02/18 20:13 Dose: 125 mls/hr Levofloxacin/Dextrose 750 mg/ (Premix) 150 mls @ 100 mls/hr IV Q24H [facility] Last Admin: 12/03/18 01:05 Dose: 100 mls/hr Insulin Aspart (Novolog) 0 unit SUBCUT TIDAC [facility]; Protocol Last Admin: 12/03/18 06:35 Dose: Not Given Lisinopril (Prinivil) 20 mg PO DAILY [facility] Last Admin: 12/03/18 08:20 Dose: 20 mg Discontinued Medications Albuterol/Ipratropium (Duoneb 3.0-0.5 Mg/3 Ml) 3 ml NEB ONETIME ONE Stop: 12/01/18 23:17 Last Admin: 12/02/18 00:22 Dose: 3 ml Amlodipine Besylate (Norvasc) 5 mg PO ONETIME ONE Stop: 12/02/18 18:23 Last Admin: 12/02/18 18:54 Dose: 5 mg Levofloxacin/Dextrose 750 mg/ (Premix) 150 mls @ 100 mls/hr IV ONETIME ONE Stop: 12/02/18 01:42 Last Admin: 12/02/18 01:22 Dose: 100 mls/hr Influenza Virus Vaccine (Pharmacy To Dose - Influenza Vaccine) 1 each IM ONETIME ONE Stop: 12/02/18 02:02 Influenza Virus Vaccine (Fluzone Quad [id number] Syringe) 60 mcg IM .ONCE ONE Stop: 12/02/18 10:01 Lisinopril (Prinivil) 10 mg PO DAILY [facility] Last Admin: 12/02/18 08:36 Dose: 10 mg Methylprednisolone Sodium Succinate (Solu-Medrol) 125 mg IVPUSH ONETIME ONE Stop: 12/01/18 23:17 Last Admin: 12/02/18 00:22 Dose: 125 mg <Davin Gurrola - Last Filed: 12/04/18 10:16> Discharge Summary - Hospital Course Free Text/Narrative:: I have examined the patient independently of certified medical technician assistant. I have discussed the case with him. I agree with the assessment and plan of care for this patient as outlined by him. Please see orders. - Patient Data Vitals - Most Recent: Last Vital Signs Temp 36.7 C 12/03/18 11:46 Pulse 78 12/03/18 11:46 Resp 16 12/03/18 11:46 BP 180/86 H 12/03/18 11:46 Pulse Ox 95 12/03/18 11:46 Lab Results - Last 24 hrs: Laboratory Results - last 24 hr 12/03/18 12/03/18 Range/Units 06:34 12:42 POC Glucose 130 H 96 (60-110) mg/dL ERIKA Results - Last 24 hrs: Microbiology 12/01/18 23:40 Aerobic Blood Culture - Preliminary Blood - Venous - Lab Draw NO GROWTH AFTER 2 DAYS Anaerobic Blood Culture - Preliminary NO GROWTH AFTER 2 DAYS 12/01/18 23:30 Aerobic Blood Culture - Preliminary Blood - Venous NO GROWTH AFTER 2 DAYS Anaerobic Blood Culture - Preliminary NO GROWTH AFTER 2 DAYS Med Orders - Current: Current Medications Discontinued Medications Albuterol/Ipratropium (Duoneb 3.0-0.5 Mg/3 Ml) 3 ml NEB ONETIME ONE Stop: 12/01/18 23:17 Last Admin: 12/02/18 00:22 Dose: 3 ml Albuterol/Ipratropium (Duoneb 3.0-0.5 Mg/3 Ml) 3 ml NEB Q4HRRT PRN PRN Reason: Wheezing Last Admin: 12/03/18 01:06 Dose: 3 ml Amlodipine Besylate (Norvasc) 5 mg PO ONETIME ONE Stop: 12/02/18 18:23 Last Admin: 12/02/18 18:54 Dose: 5 mg Benzonatate (Tessalon Perles) 100 mg PO TID PRN PRN Reason: Cough Last Admin: 12/03/18 12:41 Dose: 100 mg Hydralazine HCl (Apresoline) 25 mg PO Q8H PRN PRN Reason: SBP greater than 180 Last Admin: 12/03/18 01:06 Dose: 25 mg Sodium Chloride (Normal Saline) 1,000 mls @ 125 mls/hr IV STAT [facility] Last Admin: 12/03/18 08:21 Dose: 125 mls/hr Levofloxacin/Dextrose 750 mg/ (Premix) 150 mls @ 100 mls/hr IV ONETIME ONE Stop: 12/02/18 01:42 Last Admin: 12/02/18 01:22 Dose: 100 mls/hr Sodium Chloride (Normal Saline) 1,000 mls @ 125 mls/hr IV STAT [facility] Last Admin: 12/02/18 20:13 Dose: 125 mls/hr Levofloxacin/Dextrose 750 mg/ (Premix) 150 mls @ 100 mls/hr IV Q24H [facility] Last Admin: 12/03/18 01:05 Dose: 100 mls/hr Influenza Virus Vaccine (Pharmacy To Dose - Influenza Vaccine) 1 each IM ONETIME ONE Stop: 12/02/18 02:02 Influenza Virus Vaccine (Fluzone Quad [id number] Syringe) 60 mcg IM .ONCE ONE Stop: 12/02/18 10:01 Last Admin: 12/03/18 13:22 Dose: 60 mcg Insulin Aspart (Novolog) 0 unit SUBCUT TIDAC [facility]; Protocol Last Admin: 12/03/18 12:42 Dose: Not Given Lisinopril (Prinivil) 10 mg PO DAILY [facility] Last Admin: 12/02/18 08:36 Dose: 10 mg Lisinopril (Prinivil) 20 mg PO DAILY [facility] Last Admin: 12/03/18 08:20 Dose: 20 mg Methylprednisolone Sodium Succinate (Solu-Medrol) 125 mg IVPUSH ONETIME ONE Stop: 12/01/18 23:17 Last Admin: 12/02/18 00:22 Dose: 125 mg
[2018-12-03 11:46] VITALS: BP 180/86
== END 2018-12-03 13:30 | disposition home or self-care (01) | DRG 194 ==
LOC: MW.ED 21:18 → MW.MS 12-02 00:46
PROVIDERS: ADMIT Internal Medicine; ATTEND Internal Medicine
DX: J18.9 Pneumonia, unspecified organism (principal); Z68.43 Body mass index [BMI] 50.0-59.9, adult; I12.9 Hypertensive chronic kidney disease with stage 1 through stage 4 chronic kidney disease, or unspecified chronic kidney disease; N18.9 Chronic kidney disease, unspecified; R73.03 Prediabetes; E66.9 Obesity, unspecified; Z88.8 Allergy status to other drugs, medicaments and biological substances; Z79.899 Other long term (current) drug therapy; Z87.891 Personal history of nicotine dependence
CPT/HCPCS: 36415; 71045; 71045-26; 80048; 80053; 81003; 82962; 83036; 83605; 83880; 84484; 85025; 87040; 87804; 90686; 94640; 96361; 96374; 96375; 99284-25; A9270-GY; J1815-GY; J1956; J2930; J7040; J7620-GY

== ENCOUNTER 2021-07-25 16:41 | Emergency (ER) | payer OTHER ==
--- NOTE | 2021-07-25 16:56 | EDM.PDOC ---
ED HPI GENERAL MEDICAL PROBLEM - General Chief Complaint: Upper Extremity Injury/Pain Stated Complaint: RT ARM PAIN Time Seen by Provider: 07/25/21 16:41 Source of Information: Reports: Patient History Limitations: Reports: No Limitations - History of Present Illness INITIAL COMMENTS - FREE TEXT/NARRATIVE: 45-year-old female presents for right elbow injury. Patient notes that she was walking with her dog when her dog began to chew on something. She grabbed the dog by the collar and the dog took off running backwards. It is a large dog. Afterwards she developed pain in her cubital fossa which is worse with extension of her arm. She notes some relief with flexion at the right elbow. She denies any other injuries. 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 Social & Family History - Family History Family Medical History: No Pertinent Family History - Caffeine Use Caffeine Use: Reports: Coffee Review of Systems - Review of Systems Review Of Systems: Comprehensive ROS is negative, except as noted in HPI. 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 and radial pulse on the right upper extremity, pain with passive and active range of motion of the right elbow) Neurological: Alert, Normal Cognition, Normal Gait Psychiatric: Normal Affect, Normal Mood Skin Exam: Warm, Dry, Intact, Normal Color Course - Vital Signs Last Recorded V/S: Last Vital Signs Temp 97.2 F 07/25/21 17:06 Pulse 95 07/25/21 17:06 Resp 16 07/25/21 17:06 BP 198/110 H 07/25/21 17:06 Pulse Ox 95 07/25/21 17:06 - Orders/Labs/Meds Meds: Medications Discontinued Medications Generic Name Dose Route Start Last Admin Trade Name Allyn PRN Reason Stop Dose Admin Acetaminophen 1,000 mg 07/25/21 17:16 07/25/21 17:21 Acetaminophen 500 Mg Tab PO 07/25/21 17:17 1,000 mg ONETIME ONE Administration Ibuprofen 600 mg 07/25/21 17:16 07/25/21 17:21 Ibuprofen 600 Mg Tab PO 07/25/21 17:17 600 mg ONETIME ONE Administration - Re-Assessments/Exams Free Text/Narrative Re-Assessment/Exam: 07/25/21 17:17 We will give analgesics. Will get x-ray imaging. 07/25/21 18:10 No osseous injury on imaging. Will discharge patient with short course of analgesia. Departure - Departure Time of Disposition: 18:10 Disposition: Home, Self-Care 01 Condition: Good Clinical Impression: Elbow injury Qualifiers: Encounter type: initial encounter Laterality: right Qualified Code(s): S59.901A - Unspecified injury of right elbow, initial encounter - Discharge Information Instructions: Elbow Sprain Referrals: PCP,None [Primary Care Provider] - Forms: ED Department Discharge Additional Instructions: The following information is given to patients seen in the emergency department who are being discharged to home. This information is to outline your options for follow-up care. We provide all patients seen in our emergency department with a follow-up referral. The need for follow-up, as well as the timing and circumstances, are variable depending upon the specifics of your emergency department visit. If you don't have a primary care physician on staff, we will provide you with a referral. We always advise you to contact your personal physician following an emergency department visit to inform them of the circumstance of the visit and for follow-up with them and/or the need for any referrals to a consulting specialist. The emergency department will also refer you to a specialist when appropriate. This referral assures that you have the opportunity for follow-up care with a specialist. All of these measure are taken in an effort to provide you with optimal care, which includes your follow-up. Under all circumstances we always encourage you to contact your private physician who remains a resource for coordinating your care. When calling for follow-up care, please make the office aware that this follow-up is from your recent emergency room visit. If for any reason you are refused follow-up, please contact the [facility] Emergency Department at and asked to speak to the emergency department charge nurse. Please follow up with your primary care physician. If you do not have a primary care physician, see below: [facility] [address] [place] [id number] [facility] [address] [place] [address] [facility] [address] [place] [id number] Sepsis Event Note (ED) - Focused Exam Vital Signs: Vital Signs Temp Pulse Resp BP Pulse Ox 07/25/21 17:06 97.2 F 95 16 198/110 H 95
[2021-07-25 17:11] VITALS: BP 198/110; PULSE 95
[2021-07-25] MEDS ORDERED: Acetaminophen 500 MG Tab PO ONE (17:16)
[2021-07-25] MEDS ORDERED: Ibuprofen 600 MG Tab PO ONE (17:16)
--- NOTE | 2021-07-25 18:08 | CR ---
Indication: Injury and pain Technique: Right elbow 3 views Comparison: None Findings: Bones: Alignment is normal. No fractures or bone lesions. Joint spaces: Unremarkable. No sign of joint effusion. Soft tissues: Unremarkable. Impression: No sign of acute injury. Dictated by Justin Kramer MD @ 07/25/2021 6:08:14 PM (Electronically Signed)
== END 2021-07-25 18:25 | disposition home or self-care (01) ==
LOC: MW.ED 16:41
DX: S59.901A Unspecified injury of right elbow, initial encounter (principal); I10 Essential (primary) hypertension; Z88.1 Allergy status to other antibiotic agents; W54.1XXA Struck by dog, initial encounter; Y93.K1 Activity, walking an animal
CPT/HCPCS: 73080; 99283; A9270

== ENCOUNTER 2023-12-27 20:29 | Emergency (ER) | payer SELFPAY ==
[2023-12-27] MEDS: Ibuprofen 800 MG Tab PO ONE (21:15)
[2023-12-27] MEDS: Acetaminophen/HYDROcodone 325-5 MG Tab PO ONE (21:15)
[2023-12-28 00:01] VITALS: BP 247/95; PULSE 80
== END 2023-12-28 | disposition home or self-care (01) ==
LOC: MW.ED 20:29
DX: S86.811A Strain of other muscle(s) and tendon(s) at lower leg level, right leg, initial encounter (principal); I10 Essential (primary) hypertension; Z88.2 Allergy status to sulfonamides; W18.40XA Slipping, tripping and stumbling without falling, unspecified, initial encounter
CPT/HCPCS: 73562; 73590; 73600; 99283; A9270

== ENCOUNTER 2024-01-08 11:02 | Emergency (ER) | payer SELFPAY ==
[2024-01-08 11:54] LABS: BASOPHILS ABSOLUTE AUTO 0.03 K/uL (0.00-0.20); BASOPHILS PERCENT AUTO 0.4 % (0.0-1.0); EOSINOPHILS ABSOLUTE AUTO 0.19 K/uL (0.00-0.45); EOSINOPHILS PERCENT AUTO 2.5 % (0.0-6.0); HEMATOCRIT 37.1 % (37.0-47.0); HEMOGLOBIN 10.7 g/dL (12.0-16.0); IMMATURE GRAN ABSOLUTE AUTO 0.02 K/uL (0.00-0.05); IMMATURE GRAN PERCENT AUTO 0.3 % (0.0-0.4); LYMPHOCYTES ABSOLUTE AUTO 1.78 K/uL (1.00-4.80); LYMPHOCYTES PERCENT AUTO 23.5 % (24.0-44.0); MEAN CORPUSCULAR HEMOGLOBIN 19.2 pg (28.0-32.0); MEAN PLATELET VOLUME 9.9 fL (9.4-12.3); MONOCYTES ABSOLUTE AUTO 0.77 K/uL (0.00-0.80); MONOCYTES PERCENT AUTO 10.2 % (0.0-8.0); NEUTROPHILS ABSOLUTE AUTO 4.78 K/uL (1.80-7.70); NEUTROPHILS PERCENT AUTO 63.1 % (41.0-71.0); PLATELET COUNT,PLT 315 K/uL (150-400); RED BLOOD CELL COUNT 5.58 M/uL (4.10-5.30); WHITE BLOOD CELL COUNT,WBC 7.57 K/uL (3.9-11.3)
[2024-01-08] MEDS: oxyCODONE 5 MG Tab PO STA (12:14)
[2024-01-08] MEDS: Lisinopril 10 MG Tab PO STA (12:14)
[2024-01-08] MEDS: Ibuprofen 800 MG Tab PO STA (12:14)
[2024-01-08] MEDS: Acetaminophen 500 MG Tab PO STA (12:14)
[2024-01-08 12:25] LABS: MEAN CORPUSCULAR HGB CONC 28.8 g/dL (32.0-36.0); MEAN CORPUSCULAR VOLUME 66.5 fL (83.0-99.0)
[2024-01-08 13:05] LABS: A/G RATIO 0.8 (0.9-1.6); ALBUMIN 3.3 g/dL (3.4-5.0); BILIRUBIN TOTAL 0.5 mg/dL (0.2-1.0); CARBON DIOXIDE,CO2 27.2 mmol/L (21.0-32.0); CREATININE 1.4 mg/dL (0.6-1.0); EST CRCL DRUG DOSING (CG) 43.74 mL/min; POTASSIUM,K 3.4 mmol/L (3.5-5.1); PROTEIN TOTAL,TP 7.5 g/dL (6.4-8.2)
[2024-01-08 13:45] LABS: BILIRUBIN,URINE NEGATIVE (NEGATIVE); COLOR,URINE YELLOW; GLUCOSE,URINE NEGATIVE (NEGATIVE); KETONES,URINE NEGATIVE (NEGATIVE); LEUKOCYTE ESTERASE,URINE NEGATIVE (NEGATIVE); NITRITE,URINE NEGATIVE (NEGATIVE); OCCULT BLOOD,URINE LARGE (NEGATIVE); PROTEIN,URINE >=300 mg/dL (NEGATIVE); UROBILINOGEN,URINE 0.2 EU/dL (<2.0)
[2024-01-08 13:47] LABS: APPEARANCE,URINE HAZY
[2024-01-08 13:53] LABS: BACTERIA,URINE 1+ (NEGATIVE); MUCUS,URINE MODERATE (NONE-MOD); SQUAMOUS EPITHELIAL CELLS,UR FEW; WBC,URINE 0-1 (0-5/HPF)
[2024-01-08 13:55] LABS: AMPHETAMINES SCREEN, URINE NEGATIVE (CUTOFF=500); BARBITURATE SCREEN,URINE NEGATIVE (CUTOFF=200); BENZODIAZEPINES SCREEN,URINE NEGATIVE (CUTOFF=150); BUPRENORPHINE SCREEN,URINE NEGATIVE (CUTOFF=10); METHADONE SCREEN, URINE NEGATIVE (CUTOFF=200); METHAMPHETAMINES SCREEN, URINE NEGATIVE (CUTOFF=500); OXYCODONE SCREEN,URINE PRESUMPTIVE POSITIVE (CUT0FF=100); PCP SCREEN,URINE NEGATIVE (CUTOFF=25); THC SCREEN,URINE 20 NG/ML NEGATIVE (CUTOFF=50)
[2024-01-08 15:55] VITALS: BP 238/104; PULSE 70
== END 2024-01-08 15:55 | disposition home or self-care (01) ==
LOC: MW.ED 11:02
DX: I10 Essential (primary) hypertension (principal); R80.9 Proteinuria, unspecified; Z79.899 Other long term (current) drug therapy; Z88.2 Allergy status to sulfonamides
CPT/HCPCS: 36415; 80053; 80305; 81001; 84484; 84703; 85025; 99283; A9270; 93010

== ENCOUNTER 2024-03-02 18:47 | Emergency (ER) | payer OTHER ==
[2024-03-02 20:12] LABS: BILIRUBIN,URINE NEGATIVE (NEGATIVE); COLOR,URINE YELLOW; GLUCOSE,URINE NEGATIVE (NEGATIVE); KETONES,URINE NEGATIVE (NEGATIVE); LEUKOCYTE ESTERASE,URINE NEGATIVE (NEGATIVE); NITRITE,URINE NEGATIVE (NEGATIVE); OCCULT BLOOD,URINE MODERATE (NEGATIVE); PH,URINE 5.5 (5.0-8.0); PROTEIN,URINE 100 mg/dL (NEGATIVE); UROBILINOGEN,URINE 0.2 EU/dL (<2.0)
[2024-03-02 20:23] LABS: BASOPHILS ABSOLUTE AUTO 0.03 K/uL (0.00-0.20); BASOPHILS PERCENT AUTO 0.3 % (0.0-1.0); HEMATOCRIT 36.7 % (37.0-47.0); HEMOGLOBIN 11.2 g/dL (12.0-16.0); IMMATURE GRAN ABSOLUTE AUTO 0.03 K/uL (0.00-0.05); IMMATURE GRAN PERCENT AUTO 0.3 % (0.0-0.4); LYMPHOCYTES ABSOLUTE AUTO 1.92 K/uL (1.00-4.80); LYMPHOCYTES PERCENT AUTO 16.9 % (24.0-44.0); MEAN CORPUSCULAR HEMOGLOBIN 20.6 pg (28.0-32.0); MEAN CORPUSCULAR HGB CONC 30.5 g/dL (32.0-36.0); MEAN CORPUSCULAR VOLUME 67.6 fL (83.0-99.0); MEAN PLATELET VOLUME 10.6 fL (9.4-12.3); MONOCYTES ABSOLUTE AUTO 1.12 K/uL (0.00-0.80); MONOCYTES PERCENT AUTO 9.9 % (0.0-8.0); NEUTROPHILS ABSOLUTE AUTO 8.24 K/uL (1.80-7.70); NEUTROPHILS PERCENT AUTO 72.6 % (41.0-71.0); PLATELET COUNT,PLT 240 K/uL (150-400); RED BLOOD CELL COUNT 5.43 M/uL (4.10-5.30); WHITE BLOOD CELL COUNT,WBC 11.34 K/uL (3.9-11.3)
[2024-03-02] MEDS: Ketorolac 30 MG/ML SDV IVPUSH ONE (20:23)
[2024-03-02 20:25] VITALS: PULSE 86
[2024-03-02 20:30] LABS: APPEARANCE,URINE HAZY; RBC,URINE 0-3 (0-2/HPF)
[2024-03-02 20:32] LABS: EPITHELIAL CELLS,URINE FEW (NONE-FEW)
[2024-03-02 20:33] LABS: BACTERIA,URINE FEW (NEGATIVE); MUCUS,URINE MODERATE (NONE-MOD)
[2024-03-02 20:43] LABS: A/G RATIO 0.7 (0.9-1.6); ALBUMIN 3.2 g/dL (3.4-5.0); BILIRUBIN TOTAL 0.3 mg/dL (0.2-1.0); CALCIUM 8.9 mg/dL (8.5-10.1); CARBON DIOXIDE,CO2 25.3 mmol/L (21.0-32.0); CREATININE 1.3 mg/dL (0.6-1.0); EST CRCL DRUG DOSING (CG) 47.1 mL/min; POTASSIUM,K 3.6 mmol/L (3.5-5.1); PROTEIN TOTAL,TP 7.5 g/dL (6.4-8.2)
[2024-03-02] MEDS: Sodium Chloride 0.9% 1,000 ML IV ONE (21:06)
[2024-03-02] MEDS: Cyclobenzaprine 10 MG Tab PO ONE (21:15)
[2024-03-02 21:50] VITALS: BP 172/127
[2024-03-02] MEDS: Iopamidol 755 MG/ML 500 ML Multipack Bottle IVPUSH STA (22:25)
== END 2024-03-02 23:20 | disposition home or self-care (01) ==
LOC: MW.ED 18:47
DX: K57.32 Diverticulitis of large intestine without perforation or abscess without bleeding (principal); I10 Essential (primary) hypertension; Z79.899 Other long term (current) drug therapy; Z88.2 Allergy status to sulfonamides; Z75.8 Other problems related to medical facilities and other health care
CPT/HCPCS: 36415; 74177; 80053; 81001; 85025; 96374; 99284; A9270; J1885; Q9967